=== PATIENT | female | born 1975 | race African-American/Black ===

== ENCOUNTER 2023-11-24 20:00 | Emergency (ER) | payer OTHER ==
[2023-11-24 20:21] VITALS: BP 141/93; PULSE 83; RESP 16; TEMP 98.7; BMI 34.3
[2023-11-24] MEDS ORDERED: IBUPROFEN 600 MG TABLET (FP) PO ONE ×2 (23:06→23:07)
== END 2023-11-24 23:14 | disposition home or self-care (01) ==
LOC: FER 20:00
DX: M25.562 Pain in left knee (principal); M79.605 Pain in left leg; R22.42 Localized swelling, mass and lump, left lower limb; M71.22 Synovial cyst of popliteal space [Baker], left knee
CPT/HCPCS: 73562-TC-LT-FY; 93971-TC; 99284-25

== ENCOUNTER 2023-12-20 18:43 | Emergency (ER) | payer OTHER ==
[2023-12-20 19:07] VITALS: BP 127/79; PULSE 87; RESP 20; TEMP 98.1; BMI 34.3
[2023-12-20] MEDS ORDERED: IBUPROFEN 400 MG TABLET (FP) PO ONE (19:59)
[2023-12-20] MEDS: IBUPROFEN 400 MG TABLET (FP) PO ONE (20:00)
== END 2023-12-20 20:49 | disposition home or self-care (01) ==
LOC: JERFT 18:43 → JER 18:43 → JERFT 20:49
DX: M79.601 Pain in right arm (principal); S63.501A Unspecified sprain of right wrist, initial encounter; R22.31 Localized swelling, mass and lump, right upper limb; W01.0XXA Fall on same level from slipping, tripping and stumbling without subsequent striking against object, initial encounter
CPT/HCPCS: 73110-TC-RT-FY; 99283-25